=== PATIENT | female | born 1945 | race Caucasian/White ===

== ENCOUNTER → 2023-01-19 14:53 | Outpatient (REF) | payer MEDICARE, SELFPAY ==
--- NOTE | 2023-01-19 15:00 | CA_ITS ---
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 There is mildly increased left ventricular wall thickness. The visually estimated ejection fraction is between 55-60%. - Normal global longitudinal strain. - Diastolic function is normal for age. - Normal right ventricular cavity size and systolic function. - No significant valvular or pericardial pathology. Findings Left Ventricle Normal left ventricular size and systolic function. There is mildly increased left ventricular wall thickness. The visually estimated ejection fraction is between 55-60%. There is no evidence of regional wall motion abnormalities. Diastolic function is normal for age. Normal global longitudinal strain. Right Ventricle Normal right ventricular cavity size and systolic function. Atria The left atrium is normal in size. The right atrium is normal in size. Aortic Valve Normal aortic valve structure and function. There is no aortic valve stenosis. There is no aortic valve regurgitation. Mitral Valve The mitral valve appears normal. There is no mitral valve regurgitation. There is no mitral valve stenosis. Pulmonic Valve The pulmonic valve is likely normal. Tricuspid Valve Normal tricuspid valve structure. There is no tricuspid valve regurgitation. Normal right atrial pressure. There is no evidence of pulmonary hypertension. Great Vessels All visible segments of the aorta are normal in size. Venous The inferior vena cava is normal in size and collapses greater than 50% with inspiration. Pericardium/Pleural There is no evidence of pericardial effusion. Prior Study Comparison No prior study available for comparison. Measurements 2D Linear Measurements IVSd: 0.92 0.6-0.9/0.6-1.0 cm LVIDd: 4.17 3.9-5.3/4.2-5.9 cm LVIDd Index: 2.47 2.4-3.2/2.2-3.1 cm/m2 LVIDs: 2.54 2.0-3.6 cm LVPWd: 1.08 0.7-1.1 cm LA Diam: 3.30 2.7-3.8/3.0-4.0 cm LAIDs Index: 1.95 1.5-2.3 cm/m2 LV Mass: 168.63 67-162/88-224 g LV Mass Index: 99.78 43-95/49-115 g/m2 LVOT Diam: 1.90 3.0+(-)1.3 cm 2D Systolic Function EF 4C: 60.70 >55% EF 2C: 57.90 >55% EF BiP: 59.20 >55% Mitral Valve MV Pk E: 0.65 MV PK A: 0.87 MV Decel Time: 227.00 E/A: 0.70 E'Lateral: 9.46 E'Medial: 6.31 E/E' Med: 10.30 E/E' Lat: 6.80 PHT: 67.00 MVA PHT: 3.28 Decel Desha: 2.84 Aortic Valve AoV Pk Jaden: 1.18 AoV Mn Jaden: 0.84 AoV VTI: 0.27 AoV Pk Grad: 6.00 Aov Mn Grad: 3.00 GABRIELLE Cont.VTI: 2.19 LVOT LVOT Pk Jaden: 0.87 LVOT Mn Jaden: 0.65 LVOT VTI: 0.20 LVOT Pk Grad: 3.00 LVOT Mn Grad: 2.00 LVOT Diam: 1.90 LVOT Area: 2.84 Diastolic Function MV Pk E: 0.65 MV Pk A: 0.87 E/A: 0.70 E'Medial: 6.31 E/E' Med: 10.30 E' Laterial: 9.46 E/E' Lat: 6.80 Right Ventricle TAPSE (mm): 21.30 TVS' Jaden: 9.46 Tricuspid Valve TR Pk Jaden: 1.54 TR Pk Grad: 9.00 RA Press: 3.00 RVSP: 12.00 Great Vessels Aorta Sinus of Valsalva: 3.40 2.0-3.5 cm Ao Asc: 3.00 2.1-3.4 cm Pulmonary Valve PV Pk Jaden: 0.89 Peak PV Grad: 3.00 Updated in Other Vendor System with Status of Final Diego Simmons MD electronically signed on 01/21/2023 12:17:40 PM with status of Final
== END ==
LOC: HO.CARD 14:53
PROVIDERS: PCP Pediatrics; Visit Provider Pediatrics
DX: G45.0 Vertebro-basilar artery syndrome (principal); G45.9 Transient cerebral ischemic attack, unspecified
CPT/HCPCS: 93306